=== PATIENT | female | born 1980 | race Caucasian/White ===

== ENCOUNTER 2018-03-30 10:58 | Outpatient (CLI) | payer MEDICAID, SELFPAY ==
--- NOTE | 2018-03-30 10:39 | DI.REPORT_ITS ---
SYMPTOM/DIAGNOSIS: CORONOID FX LEFT ELBOW: A healing fracture of the coronoid process of the ulna is demonstrated with no change in apposition or alignment. There is no evidence of a joint effusion.
== END 2018-03-30 10:59 ==
PROVIDERS: PCP Family Medicine; Visit Provider Physician Assistant Surgical
DX: S52.045D Nondisplaced fracture of coronoid process of left ulna, subsequent encounter for closed fracture with routine healing (principal)
CPT/HCPCS: 73080